=== PATIENT | female | born 1940 | race Caucasian/White ===

== ENCOUNTER 2018-01-08 00:28 | Day surgery (SDC) | payer MEDICARE ==
[~2018-01-08 00:28] MED LIST: ACET325 PO; ATEN25 PO; Aspirin EC81 MG; CALCA500CH PO; CALCAVITD PO; CEPH500 PO; COMBIVENT RESPIM4 GM INH; DOCU100 PO; ESCI10 PO; EVAC-U-GEN8.6 MG PO; Fergon240 M1; Fosinopril Sodi40 MG PO; GLUCOSAMINE CH1 EAC1 PO; HYDACE10B PO; IMODIUM MULTI-1 EAC1 PO; LAVAP17G PO; MAGNESIUM250 MG PO; MECL12.5 PO; METO25ER PO; Melatonin1 MG; NICO21TP; PRAV20 PO; Prilosec Otc20 MG; Pyridium200 MG PO; SCOPTP TOP; TOCO1000 PO; TRAM50 PO; ZEBUTAL 50-3251 EACH PO; Zofran4 MG PO
[2018-01-08] MEDS ORDERED: SOMA350 MG PO (11:08)
[2018-01-08] MEDS ORDERED: Voltaren100 GM TOP (11:10)
[2018-01-08] MEDS ORDERED: Norco 10-325 T1 EACH PO (11:12)
[2018-01-08] MEDS ORDERED: CHOL10002 PO (11:13)
[2018-01-08] MEDS ORDERED: Elemental Calc600 MG PO (11:15)
[2018-01-08] MEDS ORDERED: GLUCOSAMINE &1 EACH PO (11:16)
[2018-01-08] MEDS ORDERED: Ferrousul325 MG PO (11:19)
[2018-01-08] MEDS ORDERED: Flonase 0.05% N16 GM (11:20)
[2018-01-08] MEDS ORDERED: ALLEGRA ALLERG180 MG PO (11:21)
[2018-01-08] MEDS ORDERED: CETI5 PO (11:21)
== END 2018-01-08 10:39 | disposition home or self-care (01) ==
LOC: ATC 00:28
DX: R32 Unspecified urinary incontinence (principal); J02.9 Acute pharyngitis, unspecified; J32.0 Chronic maxillary sinusitis; E78.5 Hyperlipidemia, unspecified
CPT/HCPCS: 51798

== ENCOUNTER 2018-10-25 06:55 | Day surgery (SDC) | payer MEDICARE ==
[~2018-10-25] VITALS: Ht 167.6 cm; Wt 73.2 kg
[~2018-10-25 06:55] MED LIST changes: +ALLEGRA ALLERG180 MG PO; +CETI5 PO; +CHOL10002 PO; +DIFLUCAN PO; +Detrol1 MG PO; +Elemental Calc600 MG PO; +FLUC150A PO; +FOSI10 PO; +Ferrousul325 MG PO; +Flonase 0.05% N16 GM; +GLUCOSAMINE &1 EACH PO; +Norco 10-325 T1 EACH PO; +SOMA350 MG PO; +TUMS500 MG PO; +VOLTAREN TOP; +Voltaren100 GM TOP
--- NOTE | 2018-10-25 14:08 | NUR ---
PT RFA SITE STABLE, CLEAR TEGADERM INTACT, SITE SOFT NON TENDER, NO BLEEDING, OOZING, OR PAIN NOTED. PT EDUCATED ON DISPO INSTRUCTIONS, VERBALIZED UNDERSTANDING OF D/C INSTRUCTIONS. IV REMOVED FROM LEFT WRIST WITH CATH INTACT, PRESSURE DRESSING APPLIED. PT ABLE TO GET DRESSED WITH NO NEEDED ASSISTANCE. HERE TO DRIVE HER HOME. PT TAKEN OUT TO VEHICLE VIA W/C WITH NADN AT TIME OF DISPO. VSS. PT PLAN IS FOR TAVR.
== END 2018-10-25 14:17 | disposition home or self-care (01) ==
LOC: MHTC 06:55
DX: I25.10 Atherosclerotic heart disease of native coronary artery without angina pectoris (principal); I35.0 Nonrheumatic aortic (valve) stenosis; I42.0 Dilated cardiomyopathy; I63.9 Cerebral infarction, unspecified; I10 Essential (primary) hypertension; Z79.899 Other long term (current) drug therapy; Z79.82 Long term (current) use of aspirin; Z88.8 Allergy status to other drugs, medicaments and biological substances
CPT/HCPCS: 93454; 99152; 99153; C1760; C1769; J1644; J2060; J2250; J3010; J7030; Q9967

== ENCOUNTER 2018-10-30 13:25 | Inpatient (IN) | payer MEDICARE ==
[~2018-10-30] VITALS: Ht 167.6 cm; Wt 76.3 kg
[~2018-10-30 13:25] MED LIST changes: -Aspirin EC81 MG; +Aspirin EC81 MG PO
--- NOTE | 2018-10-30 15:51 | NUR ---
CARE ASSUMED PT DIRECT ADMIT FROM MODELER OFFICE. A/O X3, CALM AND COOPERATIVE. ARRIVES WITH CYANOTIC R DISTAL FOOT AND ABSENT PULSES. R FOOT IS COLD TO TOUCH WHILE L FOOT IS WARM AND PINK. PT STATES SHE HAD ANGIOGRAM DONE 5 DAYS AGO; R GROIN SITE IS WELL HEALED WITH NO HEMATOMA. VSS. PACED RHYTHM, HR 80S AND BP STABLE. MIV NS STARTED AT 100 ML/HR PER ORDER AND HEPARIN GTT STARTED AT 500 UNITS/HR PER ORDERS. PT UP TO BEDSIDE COMMODE WITH MINIMAL ASSIST. AWARE OF BEING NPO. CALL LIGHT WITHIN REACH. WILL CONTINUE TO MONITOR.
--- NOTE | 2018-10-30 18:13 | NUR ---
SHIFT SUMMARY PT ADMITTED TO ICU AT 1340 TODAY FROM [facility]. HAS BEEN NPO SINCE THEN AND IS AWAITING ANGIOPLASTY. RIGHT DISTAL FOOT IS CYANOTIC AND COLD. PEDAL PULSES ABSENT. HEPARIN GTT STARTED AT 500 UNITS/HR AND MIV NS AT 100 ML/HR PER ORDERS. FAMILY AT BEDSIDE. RAPHAEL CATHETER INSERTED FOR PROCEDURE. PT HAD SMALL BOWEL MOVEMENT. AWAITING HEAD UP OPERATOR. WILL GIVE BESIDE, HANDOFF REPORT TO RACHEAL GRAY.
--- NOTE | 2018-10-30 19:15 | NUR ---
ASSUMED CARE ASSUMED CARE OF PATIENT. AWAKE AND ALERT. ORIENTED AND COOPERATIVE. 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 CALMS WITH REASSURANCE. REPOSITIONS SELF IN BED AND IS UP TO BSC WITH STAND-BY ASSIST. DENIES C/O PAIN OR DISCOMFORT AT THIS TIME. DENIES NAUSEA. MONITOR SHOWS PACED RHYTHM, RATE 80-90s. SBP 170s. REMAINS ON RA- SATS 96-97%. RESPIRATIONS EVEN AND UNLABORED. RIGHT FOOT IS COOL TO TOUCH AND PALE FROM MID-FOOT TO TOES. WITH PURPLISH TOES. PT PULSE WITH DOPPLER. UNABLE TO FIND DP PULSE WITH DOPPLER. PT C/O TINGLING IN RIGHT TOES. HEPARIN INFUSING @ 500UNITS/HR PER ORDER. NS INFUSING @ 100CC/HR PER ORDER. SEE SHIFT ASSESSMENT FOR FULL ASSESSMENT.
--- NOTE | 2018-10-30 20:30 | NUR ---
HYPERTENSION DR. COFFMAN NOTIFIED OF SBP 170s. NO NEW ORDERS RECEIVED AT THIS TIME.
--- NOTE | 2018-10-30 21:00 | NUR ---
SALES DEPARTMENT MANAGER SALES DEPARTMENT MANAGER TEAM HERE TO TAKE PT TO SALES DEPARTMENT MANAGER. PT IS SLIGHTLY ANXIOUS ABOUT PROCEDURE, BUT CALMS WITH REASSURANCE.
--- NOTE | 2018-10-30 23:25 | NUR ---
BACK FROM [facility] PT RETURNED FROM [facility]. DROWSY, BUT ALERT. LEFT GROIN WITH SHEATH IN PLACE- MODERATE AMOUNT OF BLOOD NOTED TO BE OOZING FROM SITE. 1+ DP PULSE IN LEFT FOOT. RIGHT FOOT WITH DOPPLER PT PULSE. UNABLE TO FIND DP PULSE WITH DOPPLER. RIGHT FOOT IS COLD AND PALE FROM TOES TO MID-FOOT. FIRST AND SECOND TOE ARE PURPLISH. HEPARIN INFUSING @ 300UNITS/HR PER ORDER. VSS.
--- NOTE | 2018-10-30 23:41 | NUR ---
TPA INFUSION TPA INFUSING @ 0.25MCG/HR THROUGH SIDE PORT OF SHEATH AND 0.25MG/HR THROUGH COAXIAL INFUSION CATHETER PER ORDER (TOTAL TPA OF 0.5MG/HR).
[2018-10-31 06:19] LABS: Hematocrit 31.4 % (33.0-51.0); Hemoglobin 9.5 g/dL (11.5-16.0)
--- NOTE | 2018-10-31 06:43 | NUR ---
SHIFT SUMMARY PT TO APPLICATION DEVELOPMENT SPECIALIST FROM 2099 TO 5 FOR PERIPHERAL INTERVENTION. RETURNED TO ICU WITH LEFT FEMORAL SHEATH IN PLACE. SITE BLEEDING UPON ARRIVAL, BUT BLEEDING STOPPED AFTER APPROXIMATELY FIVE MINUTES OF LIGHT MANUAL PRESSURE. DRSG IS NOW INTACT WITH OLD BLOODY DRAINAGE NOTED. SITE IS SOFT AND WITHOUT HEMATOMA. TPA INFUSING VIA TWO SEPARATE PORTS @ 0.25MG/HR (TOTAL 0.5MG/HR) PER ORDER. HEPARIN GTT CONTINUES @ 300UNITS/HR PER ORDER. NS INFUSING @ 100CC/HR. RIGHT PT PULSE WITH DOPPLER. UNABLE TO FIND RIGHT DP PULSE WITH DOPPLER. LEFT PT/DP IS 1+. RIGHT FOOT IS PALE AND COOL FROM MID-FOOT TO TOES. FIRST AND SECOND TOE CONTINUES TO BE SLIGHTLY PURPLISH. PT DENIES NUMBNESS OR TINGLING AT THIS TIME. VSS. MONITOR SHOWS PACED RHYTHM. RAPHAEL PATENT AND DRAINING CLEAR YELLOW URINE. PT IS TO RETURN TO APPLICATION DEVELOPMENT SPECIALIST SOMETIME TODAY AND HAS BEEN NPO SINCE APPROXIMATELY 0100. MEDICATED WITH FENTANLY 25-50MCG IV X 2 DURING NOC WITH GOOD RELIEF OF RIGHT FOOT PAIN. PT IS SLIGHTLY ANXIOUS AT TIMES, BUT CALMS WITH REASSURANCE. WILL REPORT TO DAY SHIFT RN WHEN AVAILABLE.
--- NOTE | 2018-10-31 09:36 | NUR ---
PT HAS C/O LOW BACK PAIN (HX SURG) AND REPOSITIONING SEEMS TO ASSIST. PT HAS TPA X2 SITES INFUSINS NOTED, HEP AT 4UNITS/6ML, AND NS AT 100ML/HR. PT IS NPO AND MOUTN SWABS OFFERED. PT LOG ROLLED, L GROIN HAS OLD OZZING UNDER DSG OTHERWISE STABLE. PT HAS GOOD DOPPLER PULSES TO R FOOT, PINK TOES, WARM, AND DENIES PAIN IN FOOT.
--- NOTE | 2018-10-31 16:15 | NUR ---
PT JUST NOW [facility] R FOOT CATH PER DR COFFMAN. PT HAS BEEN HAVING LOW BACK PAIN AND REQUIRING PAIN MEDS FREQUENTLY. PT BP HAS TRENDED UP NOTED BUT NO AM MEDS WERE GIVEN. PT IVF UNCHANGED. PT FAMILY IN TO VISIT MOST OF DAY. PT SL ANXIOUS BUT WANTS PROCEDURE TO BE OVER.
--- NOTE | 2018-10-31 16:47 | NUR ---
This student nurse has permission to access patient's medical information.
--- NOTE | 2018-10-31 18:19 | NUR ---
1745 PT RECIEVED BACK FROM [facility] DROWSY BUT VSS. PT DISTAL PULSES PER STRONG DOPPLER SIGNAL AND BILAT FEET VERY WARM. L GROIN SITE STABLE AND DSG INTACT WITH SOME OBSERVABLE BRUSING EITHER SIDE OF GROIN FOLD. PT AROUSES BUT FALLS TO SLEEP. SATS GOOD. NEW ORDERS NOTED ON HAND WRITTEN PAPER ORDERS.
--- NOTE | 2018-10-31 21:30 | NUR ---
START OF SHIFT: BEDSIDE REPORT FROM PARESH GRAY. PT AWAKE AND TALKING TO FAMILY. VSS. LS CLEAR ON RA. L GROIN SITE ASSESED WITH PARESH GRAY AND IS SOFT WITH A SCANT AMOUNT OF DRAINAGE TO GAUZE UNDER TEGADERM WHICH HAS BEEN SAME PER PARESH GRAY. PT'S LOWER EXTREM PULSES + BILATERALY WITH DOPPLER. RIGHT FOOT ACTUALLY WARM AND PINK WITH <2 SEC CAP REFILL. PT WITH C/O BACK PAIN WHICH PT STATES IS HER NORMAL PAIN AND TAKES PAIN MEDICATION FOR AT HOME. PT STATED HAS NOT HAD HER MEDICATIONS TODAY AND HASN'T EATEN ANYTHING SINCE MONDAY MORNING. PT OTHERWISE PLEASANT AND CONTINUED TO SOCIALIZE WITH FAMILY.
--- NOTE | 2018-10-31 23:23 | NUR ---
PT OUT OF BED: PT UP OUT OF BED AND USED BEDSIDE COMMODE AT APPRX 2240. PT TOLERATED WELL. IODINE AND DRIED BLOOD WASHED FROM LEGS. SUDHAKAR CARE PROVIDED. PT ABLE TO HAVE SMALL BM. PT ASSISTED BACK TO BED. LEFT GROIN SITE REMAINS WNL, PEDAL PULSES + X4 USING DOPPLER. WILL CONTINUE TO MONITOR AND ASSIST PRN.
--- NOTE | 2018-11-01 00:52 | NUR ---
OOOO PT ASSIST TURNING TO THE LEFT. PT A+O, VSS, L FEM SITE REMAINS WNL. BILATERAL PP+ X4 WITH DOPPLER-PWD. CALL LIGHT WITHIN REACH.
--- NOTE | 2018-11-01 04:00 | NUR ---
PT C/O RIGHT LEG SPASM AND ACHE AFTER BACK TO BED FROM [facility]. PPP, RIGHT FOOT PWD. PULSES DETECTED VIA DOPPLER. WARM PACK APPLIED TO PT'S RIGHT THIGH AND PT LYING SUPINE. PT REQUESTED AND GIVEN "PAIN PILL". CALL LIGHT WITHIN REACH. WILL CONTINUE TO MONITOR.
--- NOTE | 2018-11-01 05:56 | NUR ---
IJEOMA BACK. PT UP TO BSC. PT ASSISTED BACK TO BED. CALL LIGHT IN HAND. PT WATCHING TV.
--- NOTE | 2018-11-01 07:00 | NUR ---
ASSUMED CARE OF PT. PT IS ALERT AND ORIENTED. DENIES PAIN AT THIS TIME. LEFT GROIN ACCESS SITE IS STABLE.
--- NOTE | 2018-11-01 09:04 | NUR ---
AMBULATED THROUGH UNIT PT AMBULATED THROUGHOUT ICU WITH HER CANE. DID VERY WELL, JUST STATES HER RIGHT LEG IS A "LITTLE SORE" BACK TO ROOM AND SAT UP IN CHAIR. FAMILY ARRIVES TO VISIT.
--- NOTE | 2018-11-01 09:34 | NUR ---
0820-HELPED PT TO THE BATHROOM. PT WAS ABLE TO AMBULATE FROM THE BED TO THE BATHROOM WITH SLIGHT LIMPING. PT STATED THAT THE R GROIN WAS SORE. TALKED TO DR. COFFMAN AND DR. CARRASCO REGARDING DIET. ORDERS RECEIVED. 0900-PT AMBULATED AROUND THE UNIT WITH SORENESS NOTED TO THE R GROIN FROM PREVIOUS ACCESS SITE BUT OVERALL PT IS DOING VERY WELL WITH AMBULATION. 0934-PT IS CURRENTLY SITTING ON THE CHAIR TALKING TO FAMILY. DR. COFFMAN HAS STATED TO THIS NURSE THAT PT CAN GO HOME TODAY. WILL INFORM DR. CARRASCO.
--- NOTE | 2018-11-01 13:07 | NUR ---
Met pt in bed resting and family members on visit in the room ,pt reports fo doing much better , encouraged pt offered spiritual support and prayers for the pt.
--- NOTE | 2018-11-01 14:15 | NUR ---
SEEDN BY DR. CARRASCO. PT WILL BE DISCHARGE TODAY.
[2018-11-01] MEDS ORDERED: CLOP75 PO (15:18)
--- NOTE | 2018-11-01 16:15 | NUR ---
PT WAS DISCHARGED @ 1612. DISCHARGE INSTRUCTIONS WERE GIVEN TO PATIENT. TRIED TO CALL DR. CARRASCO'S CLINIC TO MAKE APPOINTMENT FOR PATIENT, NO ONE ANSWERED.
== END 2018-11-01 16:10 | disposition home or self-care (01) | DRG 254 ==
LOC: ICUW 13:28
PROVIDERS: Radiology Diagnostic Radiology; ADMIT Internal Medicine Cardiovascular Disease
PROC: 047K3ZZ Dilation of Right Femoral Artery, Percutaneous Approach (ICD-10-PCS; principal; 2018-10-31)
PROC: 047M3ZZ Dilation of Right Popliteal Artery, Percutaneous Approach (ICD-10-PCS; 2018-10-31)
PROC: 3E05317 Introduction of Other Thrombolytic into Peripheral Artery, Percutaneous Approach (ICD-10-PCS; 2018-10-31)
DX: I70.201 Unspecified atherosclerosis of native arteries of extremities, right leg (principal); I70.8 Atherosclerosis of other arteries; I35.0 Nonrheumatic aortic (valve) stenosis; E78.5 Hyperlipidemia, unspecified; I49.5 Sick sinus syndrome; Z95.0 Presence of cardiac pacemaker; I07.1 Rheumatic tricuspid insufficiency; I10 Essential (primary) hypertension; I25.10 Atherosclerotic heart disease of native coronary artery without angina pectoris; Z86.73 Personal history of transient ischemic attack (TIA), and cerebral infarction without residual deficits
CPT/HCPCS: 36415; 37211; 37224; 51702; 75625; 75716; 75774; 85014; 85018; 85384; 93926; 99152; 99153; C1725; C1751; C1760; C1769; C1876; C1887; C1894; J1644; J2250; J2997; J3010; J7030; J7040; Q9967

== ENCOUNTER 2019-02-10 22:05 | Inpatient (IN) | payer MEDICARE ==
[~2019-02-10] VITALS: Ht 167.6 cm; Wt 67.0 kg
[~2019-02-10 22:05] MED LIST changes: +CLOP75 PO
[2019-02-10 23:47] LABS: BASOPHILS ABSOLUTE AUTO 0.06 K/mm3 (0.00-0.23); BASOPHILS PERCENT AUTO 1 % (0-2); EOSINOPHILS ABSOLUTE AUTO 0.18 K/mm3 (0.00-0.68); EOSINOPHILS PERCENT AUTO 2 % (0-6); Hematocrit 32.2 % (33.0-51.0); Hemoglobin 9.4 g/dL (11.5-16.0); IMMATURE GRAN ABSOLUTE AUTO 0.01 K/mm3 (0.00-0.10); IMMATURE GRAN PERCENT AUTO 0 % (0-1); LYMPHOCYTES ABSOLUTE AUTO 0.79 K/mm3 (0.84-5.20); LYMPHOCYTES PERCENT AUTO 9 % (21-46); MONOCYTES PERCENT AUTO 11 % (4-13); Mean Corpuscular HGB 25.4 pg (26.0-34.0); Mean Corpuscular HGB Conc 29.2 g/dL (31.5-36.5); Mean Corpuscular Volume 87 fL (80-100); Mean Platelet Volume 12.8 fL (9.1-12.4); NEUTROPHILS ABSOLUTE AUTO 6.58 K/mm3 (1.96-9.15); NEUTROPHILS PERCENT AUTO 77 % (41-73); Platelet Count 263 K/mm3 (150-400); RDW Coefficient Variation 15.8 % (11.7-14.2); White Blood Cell Count 8.52 K/mm3 (4.00-11.30)
[2019-02-10] MEDS ORDERED: PANT40 PO (23:56)
[2019-02-11 00:12] LABS: Alanine Aminotransfer (ALT/SGP 29 U/L (12-78); Albumin, Blood 3.3 g/dL (3.4-5.0); Albumin/Globulin Ratio 0.9 (0.8-1.8); Alk Phos 127 U/L (50-136); Anion Gap 6 mmol/L (6-16); Aspartate Aminotrans (AST/SGOT 30 U/L (12-37); Bilirubin, Total 0.3 mg/dL (0.1-1.0); Blood Urea Nitrogen 12 mg/dL (8-24); Bun/Creatinine Ratio 17.7 (12.0-20.0); CO2, Blood 28 mmol/L (21-32); Calcium, Blood 8.9 mg/dL (8.5-10.1); Chloride, Blood 107 mmol/L (98-108); Creatinine, Blood 0.68 mg/dL (0.40-1.00); Globulin, Blood 3.8 g/dL (2.2-4.0); Glomerular Filtration Rate >60 (60-); Glucose, Blood 121 mg/dL (70-99); Potassium, Blood 3.6 mmol/L (3.5-5.5); Sodium, Blood 141 mmol/L (136-145); Total Protein, Blood 7.1 g/dL (6.4-8.2); Troponin I <0.015 ng/mL (0.000-0.040)
--- NOTE | 2019-02-11 03:38 | NUR ---
SHIFT SUMMARY- PT. ARRIVED FROM ED VIA STRETCHER. DX'S OF ACUTE CHF. A&O, RAPHAEL PLACED IN THE ED FOR ACCURATE I&O'S. PT. C/O GENERALIZED WEAKNESS, IS A 1 ASSIST. BILATERAL LE EDEMA NOTED. TIRE WRAPPER IN PLACE. PT. RESTING COMFORTABLY IN BED, DENIES NEEDS AT THIS TIME. NO C/O PAIN OR DISCOMFORT. CALL LIGHT WITHIN REACH AND SIDE RAILS UP X2. WILL CONT TO MONITOR.
[2019-02-11 07:06] LABS: Adenovirus Not Detected (NOT DETECT); Bordetella pertussis Not Detected (NOT DETECT); Chlamydophila pneumoniae Not Detected (NOT DETECT); Coronavirus 229E Not Detected (NOT DETECT); Coronavirus HKU1 Not Detected (NOT DETECT); Coronavirus NL63 Not Detected (NOT DETECT); Coronavirus OC43 Not Detected (NOT DETECT); Human Metapneumovirus Not Detected (NOT DETECT); Human Rhinovirus/Enterovirus Not Detected (NOT DETECT); Influenza A Not Detected (NOT DETECT); Influenza A/2009-H1 Not Detected (NOT DETECT); Influenza A/H1 Not Detected (NOT DETECT); Influenza A/H3 Not Detected (NOT DETECT); Influenza B Not Detected (NOT DETECT); Mycoplasma pneumoniae Not Detected (NOT DETECT); Parainfluenza Virus 1 Not Detected (NOT DETECT); Parainfluenza Virus 2 Not Detected (NOT DETECT); Parainfluenza Virus 3 Not Detected (NOT DETECT); Parainfluenza Virus 4 Not Detected (NOT DETECT); Respiratory Syncytial Virus Not Detected (NOT DETECT)
[2019-02-11 07:26] LABS: Hematocrit 31.5 % (33.0-51.0); Hemoglobin 9.5 g/dL (11.5-16.0); Mean Corpuscular HGB 25.5 pg (26.0-34.0); Mean Corpuscular HGB Conc 30.2 g/dL (31.5-36.5); Mean Corpuscular Volume 85 fL (80-100); Mean Platelet Volume 11.1 fL (9.1-12.4); Platelet Count 331 K/mm3 (150-400); RDW Coefficient Variation 15.7 % (11.7-14.2); RDW Standard Deviation 47.8 fL (35.1-46.3); Red Blood Cell Count 3.72 M/mm3 (3.80-5.20); White Blood Cell Count 8.64 K/mm3 (4.00-11.30)
[2019-02-11 07:50] LABS: Troponin I <0.015 ng/mL (0.000-0.040)
[2019-02-11 07:59] LABS: Alanine Aminotransfer (ALT/SGP 27 U/L (12-78); Albumin, Blood 3.3 g/dL (3.4-5.0); Albumin/Globulin Ratio 0.8 (0.8-1.8); Alk Phos 121 U/L (50-136); Anion Gap 6 mmol/L (6-16); Aspartate Aminotrans (AST/SGOT 25 U/L (12-37); Bilirubin, Total 0.4 mg/dL (0.1-1.0); Blood Urea Nitrogen 11 mg/dL (8-24); Bun/Creatinine Ratio 16.1 (12.0-20.0); CO2, Blood 32 mmol/L (21-32); Calcium, Blood 9.2 mg/dL (8.5-10.1); Chloride, Blood 105 mmol/L (98-108); Creatinine, Blood 0.68 mg/dL (0.40-1.00); Globulin, Blood 3.9 g/dL (2.2-4.0); Glomerular Filtration Rate >60 (60-); Glucose, Blood 96 mg/dL (70-99); Potassium, Blood 4.1 mmol/L (3.5-5.5); Sodium, Blood 143 mmol/L (136-145); Total Protein, Blood 7.2 g/dL (6.4-8.2)
[2019-02-11 08:01] LABS: CPK Creatine Kinase 49 U/L (26-193)
--- NOTE | 2019-02-11 14:17 | NUR ---
NOTIFIED DR. GROSSMAN PT'S BP 84/57 AND [address] GROSSMAN PT REPORTS MILD DIZZINESS. NOTIFIED DR. GROSSMAN I HELD PT'S 1400 METOPROLOL. NO NEW ORDERS AT THIS TIME. WILL CONTINUE TO MONITOR.
[2019-02-11 16:47] LABS: CPK Creatine Kinase 44 U/L (26-193); Troponin I <0.015 ng/mL (0.000-0.040)
--- NOTE | 2019-02-11 17:27 | NUR ---
SHIFT SUMMARY- PT C/O BACK PAIN. MEDS GIVEN PER EMAR. PT DENIES SOB. 95% ON 2L O2 NC. PT C/O NAUSEA THIS AFTERNOON. MEDS GIVEN PER EMAR. PT HAD ECHO TODAY. DUAL PACED AT 90 PER PCU CENTRAL OFFICE OPERATOR SUPERVISOR. TELE DC'D. BP 84/[address] GROSSMAN NOTIFIED. SEE PREVIOUS NOTE. BP 117/56 THIS PM. RAPHAEL PATENT AND DRAINING. 1 ASSIST TO THE BATHROOM. NO OTHER SIGNIFICANT CHANGES THIS SHIFT.
--- NOTE | 2019-02-12 04:47 | NUR ---
SHIFT SUMMARY- PT. PLEASANT COOPERATIVE WITH CARE. SLEPT ON/OFF T/O THE NIGHT. PT. IS BEING DIURESED, ON 2L OF . CONTINUES TO HAVE PRODUCTIVE HACKING COUGH WITH THICK SECRETIONS. RAPHAEL PATENT AND DRAINING WELL. NO APPARENT DISTRESS NOTED. CALL LIGHT WITHIN REACH AND SIDE RAILS UP X2. WILL CONT TO MONITOR.
[2019-02-12 10:07] LABS: Percent Saturation 6.3 % (15.0-50.0)
--- NOTE | 2019-02-12 18:57 | NUR ---
SHIFT SUMMARY: PT'S RAPHAEL WAS REMOVED TODAY. POSSIBLE DC TOMORROW. PT INDEPENDENT TO BSC AND TRYING TO AMBULATE MORE OFTEN. DENIED FURTHER NEEDS OR CONCERNS. MEDICATED X1 FOR PAIN THIS SHIFT
[2019-02-13 05:01] LABS: BASOPHILS ABSOLUTE AUTO 0.05 K/mm3 (0.00-0.23); BASOPHILS PERCENT AUTO 1 % (0-2); EOSINOPHILS ABSOLUTE AUTO 0.32 K/mm3 (0.00-0.68); EOSINOPHILS PERCENT AUTO 3 % (0-6); Hematocrit 37.7 % (33.0-51.0); Hemoglobin 11.2 g/dL (11.5-16.0); IMMATURE GRAN ABSOLUTE AUTO 0.02 K/mm3 (0.00-0.10); IMMATURE GRAN PERCENT AUTO 0 % (0-1); LYMPHOCYTES ABSOLUTE AUTO 1.33 K/mm3 (0.84-5.20); LYMPHOCYTES PERCENT AUTO 14 % (21-46); MONOCYTES ABSOLUTE AUTO 1.13 K/mm3 (0.16-1.47); MONOCYTES PERCENT AUTO 12 % (4-13); Mean Corpuscular HGB 25.4 pg (26.0-34.0); Mean Corpuscular HGB Conc 29.7 g/dL (31.5-36.5); Mean Corpuscular Volume 86 fL (80-100); NEUTROPHILS ABSOLUTE AUTO 6.79 K/mm3 (1.96-9.15); NEUTROPHILS PERCENT AUTO 71 % (41-73); RDW Coefficient Variation 15.8 % (11.7-14.2); Red Blood Cell Count 4.41 M/mm3 (3.80-5.20); White Blood Cell Count 9.64 K/mm3 (4.00-11.30)
--- NOTE | 2019-02-13 05:04 | NUR ---
SHIFT SUMMARY- PT. SLEPT ON/OFF T/O SHIFT. AMBULATING TO BATHROOM WITH 1 ASSIST AND AT TIMES INDEPENDENTLY. DENIED ANY NEEDS T/O THE NIGHT. POSSIBLE D/C FOR TODAY. CALL LIGHT WITHIN REACH AND SIDE RAILS UP X 2. WILL CONT TO MONITOR.
[2019-02-13 05:18] LABS: Alanine Aminotransfer (ALT/SGP 22 U/L (12-78); Albumin, Blood 3.5 g/dL (3.4-5.0); Albumin/Globulin Ratio 0.8 (0.8-1.8); Alk Phos 121 U/L (50-136); Anion Gap 5 mmol/L (6-16); Aspartate Aminotrans (AST/SGOT 14 U/L (12-37); Bilirubin, Total 0.4 mg/dL (0.1-1.0); Blood Urea Nitrogen 17 mg/dL (8-24); Bun/Creatinine Ratio 19.3 (12.0-20.0); CO2, Blood 35 mmol/L (21-32); Calcium, Blood 9.6 mg/dL (8.5-10.1); Chloride, Blood 95 mmol/L (98-108); Creatinine, Blood 0.88 mg/dL (0.40-1.00); Globulin, Blood 4.5 g/dL (2.2-4.0); Glomerular Filtration Rate >60 (60-); Glucose, Blood 110 mg/dL (70-99); Potassium, Blood 3.6 mmol/L (3.5-5.5); Sodium, Blood 135 mmol/L (136-145)
[2019-02-13 05:19] LABS: Platelet Count 283 K/mm3 (150-400)
--- NOTE | 2019-02-13 07:40 | NUR ---
ASSUMED ASSUMED CARE OF PT APPORX. 0700. PT A&OX4. ASSESSMENT COMPLETED. PT VITAL SIGNS STABLE. ALTHOUGH PT BLOOD PRESSURE SLIGHTLY LOW MAP REMAINS IN 70'S. HELD MORNING BLOOD PRESSURE MEDICATIONS THIS AM. PT REPORTS HAVING A HEADACHE THIS MORNING FROM COUGHING SO MUCH LAST NIGHT. PRN PAIN MEDICAITON GIVEN PER EMAR. PT REPROTS THIS HELPED WITH THIS. PT REPROTS FEELING WELL THIS MORNING. PT CURRENLTY IN BED. BED IN LOW POSITION. CALL LIGHT IN REACH AND PT DENIES ANY NEEDS.
--- NOTE | 2019-02-13 18:22 | NUR ---
SHIFT SUMMARY PT PLEASANT, COOPERATIVE AND USES CALL LIGHT APPROPRIATELY. PT REMAINS A&OX4. VITAL SIGNS REMAIN STABLE. ASSESSMENT FINDINGS REMAIN UNCHANGED SINCE START OF SHIFT. PT ABLE TO AMBUALTE TO BEDSIDE COMMODE NEEDED. PT WAS ABLE TO AMBULATE AND TAKE A SHOWER TODAY. PT REPORTS COUGH WAS BETTER TODAY THAN FROM PREVIOUS DAYS. BED IN LOW POSITION, CALL LIGHT IN REACH AND PT DENIES ANY NEEDS AT THIS TIME. WILL CONTINUE TO MONITOR UNTIL HANDOFF TO NIGHTSHIFT RN.
[2019-02-14 05:51] LABS: Anion Gap 7 mmol/L (6-16); Blood Urea Nitrogen 18 mg/dL (8-24); Bun/Creatinine Ratio 21.4 (12.0-20.0); CO2, Blood 34 mmol/L (21-32); Calcium, Blood 9.4 mg/dL (8.5-10.1); Chloride, Blood 95 mmol/L (98-108); Creatinine, Blood 0.84 mg/dL (0.40-1.00); Glomerular Filtration Rate >60 (60-); Glucose, Blood 104 mg/dL (70-99); Potassium, Blood 3.5 mmol/L (3.5-5.5); Sodium, Blood 136 mmol/L (136-145)
--- NOTE | 2019-02-14 06:33 | NUR ---
SHIFT SUMMARY PT IS A 78 Y/O FEMALE, ADMITTED FOR ACUTE CHF EXACERBATION AND FLUID OVERLOAD. SHE IS A&O X 3, AND [place]END[place] [facility] SHE REPORTED CHRONIC BACK AND CHEST PAIN AT THE SITE OF HER RECENT SURGERY DURING THE NIGHT, AND WAS MEDICATED TWICE WITH PRN NORCO. NO COMPLAINTS OF NAUSEA OR SOB. VITALS REMAINED STABLE ON 2L OF O2 VIA NC. NO OTHER ACUTE CHANGES IN PT CONDITION NOTED. WILL CONTINUE TO MONITOR AND TREAT PER EMAR UNTIL HAND OFF TO DAY SHIFT.
--- NOTE | 2019-02-14 17:56 | NUR ---
SHIFT SUMMARY PT AXO X4 THOUGH VERY FORGETFUL AND IRRITABLE. VSS. PT WORKED WITH PHYSICAL THERAPY, SEE NOTE. PT HAD 700ML OUT SO FAR THIS SHIFT. IV PATENT AND SALINE LOCKED. BED IN LOW POSITION, CALL LIGHT WITHIN REACH
--- NOTE | 2019-02-15 06:14 | NUR ---
SHIFT SUMMARY PT IS A 78 Y/O FEMALE, ADMITTED FOR ACUTE CHF EXACERBATION. SHE IS A&O X 3, AND [place] [facility] SHE WAS MEDICATED ONCE WITH PRN NORCO FOR CHRONIC BACK PAIN. SHE ALSO HAD A INTERMITTENT NONPRODUCTIVE COUGH, WITH NO COMPLAINTS OF ACUTE SOB OR NAUSEA. VITALS STABLE. NO OTHER ACUTE CHANGES IN PT CONDITION NOTED. WILL CONTINUE TO MONITOR AND TREAT PER EMAR UNTIL HAND OFF TO DAY SHIFT.
[2019-02-15 07:02] LABS: BASOPHILS ABSOLUTE AUTO 0.09 K/mm3 (0.00-0.23); BASOPHILS PERCENT AUTO 1 % (0-2); EOSINOPHILS ABSOLUTE AUTO 0.19 K/mm3 (0.00-0.68); EOSINOPHILS PERCENT AUTO 2 % (0-6); Hematocrit 38.1 % (33.0-51.0); Hemoglobin 11.1 g/dL (11.5-16.0); IMMATURE GRAN ABSOLUTE AUTO 0.02 K/mm3 (0.00-0.10); IMMATURE GRAN PERCENT AUTO 0 % (0-1); LYMPHOCYTES ABSOLUTE AUTO 1.22 K/mm3 (0.84-5.20); LYMPHOCYTES PERCENT AUTO 15 % (21-46); MONOCYTES ABSOLUTE AUTO 0.83 K/mm3 (0.16-1.47); MONOCYTES PERCENT AUTO 10 % (4-13); Mean Corpuscular HGB 24.9 pg (26.0-34.0); Mean Corpuscular HGB Conc 29.1 g/dL (31.5-36.5); Mean Corpuscular Volume 85 fL (80-100); Mean Platelet Volume 11.1 fL (9.1-12.4); NEUTROPHILS PERCENT AUTO 71 % (41-73); Platelet Count 384 K/mm3 (150-400); RDW Coefficient Variation 15.5 % (11.7-14.2); RDW Standard Deviation 48.9 fL (35.1-46.3); Red Blood Cell Count 4.46 M/mm3 (3.80-5.20); White Blood Cell Count 8.05 K/mm3 (4.00-11.30)
[2019-02-15 07:25] LABS: Alanine Aminotransfer (ALT/SGP 17 U/L (12-78); Albumin, Blood 3.5 g/dL (3.4-5.0); Albumin/Globulin Ratio 0.8 (0.8-1.8); Alk Phos 111 U/L (50-136); Anion Gap 5 mmol/L (6-16); Aspartate Aminotrans (AST/SGOT 9 U/L (12-37); Bilirubin, Total 0.2 mg/dL (0.1-1.0); Blood Urea Nitrogen 22 mg/dL (8-24); Bun/Creatinine Ratio 24.6 (12.0-20.0); CO2, Blood 34 mmol/L (21-32); Calcium, Blood 9.5 mg/dL (8.5-10.1); Chloride, Blood 95 mmol/L (98-108); Creatinine, Blood 0.89 mg/dL (0.40-1.00); Globulin, Blood 4.6 g/dL (2.2-4.0); Glomerular Filtration Rate >60 (60-); Glucose, Blood 140 mg/dL (70-99); Potassium, Blood 3.5 mmol/L (3.5-5.5); Sodium, Blood 134 mmol/L (136-145); Total Protein, Blood 8.1 g/dL (6.4-8.2)
--- NOTE | 2019-02-15 18:45 | NUR ---
shift summary patient is pleasant, no acute concerns at this time. patient was just given a no iv access order per dr. chang on telephone order. no acute concerns at this patient.
--- NOTE | 2019-02-16 04:49 | NUR ---
NOC SHIFT SUMMARY PT PLEASANT AND COOPERATIVE WITH CARE. STATES SHE HAS A PRODUCTIVE COUGH THOUGH I HAVE NO HEARD HER COUGH. ADMITTED FOR CHF EXACERBATION AND BEING DIURESED. SHE HAS BEEN TREATED FOR CHRONIC BACK PAIN THIS NIGHT TO GOOD EFFECT. VSS. AAOX4. RESP EVEN AND UNLABORED. APPEARS IN NO ACUTE DISTRESS. WILL CONTINUE TO MONITOR.
[2019-02-16 05:51] LABS: Anion Gap 5 mmol/L (6-16); Blood Urea Nitrogen 20 mg/dL (8-24); Bun/Creatinine Ratio 26.5 (12.0-20.0); CO2, Blood 34 mmol/L (21-32); Calcium, Blood 9.3 mg/dL (8.5-10.1); Chloride, Blood 95 mmol/L (98-108); Creatinine, Blood 0.76 mg/dL (0.40-1.00); Glomerular Filtration Rate >60 (60-); Glucose, Blood 116 mg/dL (70-99); Potassium, Blood 3.7 mmol/L (3.5-5.5); Sodium, Blood 134 mmol/L (136-145)
[2019-02-16] MEDS ORDERED: BENZ100A PO (12:29)
[2019-02-16] MEDS ORDERED: Preparation H26 GM PR (12:30)
[2019-02-16] MEDS ORDERED: Colace100 MG PO (12:30)
[2019-02-16] MEDS ORDERED: NITR.6SL PO (12:31)
[2019-02-16] MEDS ORDERED: METO25ER PO (12:31)
[2019-02-16] MEDS ORDERED: TORSE20 PO (12:32)
[2019-02-16] MEDS ORDERED: POTA10T PO (12:32)
[2019-02-16] MEDS ORDERED: ALBU90OI INH (12:35)
[2019-02-16] MEDS ORDERED: AIRDUO RESPICL1 EAC2 INH (12:36)
[2019-02-16] MEDS ORDERED: LISI5 PO (12:37)
[2019-02-16] MEDS ORDERED: COMBIVENT RESPIM4 GM INH (12:37)
[2019-02-16] MEDS ORDERED: Prednisone10 MG PO (12:39)
[2019-02-16] MEDS ORDERED: Florastor250 MG PO (12:49)
[2019-02-16] MEDS ORDERED: DOXY100 PO (12:49)
--- NOTE | 2019-02-16 18:28 | NUR ---
DISCHARGE SUMMARY PATIENT HAD NO IV ACCESS. ALL MEDICATIONS SENT TO THE PHARMACY AND PICKED UP PRIOR TO PATIENT'S DISCHARGE. PATIENT DISCHARGED TO HOME WITH , HE PICKED HER UP. SHE WAS WHEELED DOWN TO THE CAR IN A WHEELCHAIR.
== END 2019-02-16 16:26 | disposition home or self-care (01) | DRG 291 ==
LOC: ER 22:05 → MEDS 22:06 → ENPENDDIS 02-16 11:43 → MEDS 02-16 16:26
PROVIDERS: Internal Medicine; Physician Assistant; ADMIT Internal Medicine
DX: I11.0 Hypertensive heart disease with heart failure (principal); I50.31 Acute diastolic (congestive) heart failure; E78.5 Hyperlipidemia, unspecified; I25.10 Atherosclerotic heart disease of native coronary artery without angina pectoris; I73.9 Peripheral vascular disease, unspecified; J20.9 Acute bronchitis, unspecified; J44.9 Chronic obstructive pulmonary disease, unspecified; B96.1 Klebsiella pneumoniae [K. pneumoniae] as the cause of diseases classified elsewhere; Z95.1 Presence of aortocoronary bypass graft; Z95.2 Presence of prosthetic heart valve; Z86.73 Personal history of transient ischemic attack (TIA), and cerebral infarction without residual deficits; Z79.82 Long term (current) use of aspirin; Z79.899 Other long term (current) drug therapy; Z88.1 Allergy status to other antibiotic agents; Z88.8 Allergy status to other drugs, medicaments and biological substances; Z87.891 Personal history of nicotine dependence
CPT/HCPCS: 0099U; 36415; 51702; 71046; 80048; 80053; 82550; 82728; 83540; 83550; 83735; 83880; 84145; 84484; 85025; 85027; 87070; 87077; 87186; 87205; 93005; 93010; 93306; 94640; 94760; 94761; 96372; 96374-59; 96375; 96375-59; 96376; 97162; 99285-25; A9270; G0378; J0696; J1650; J1940; J2405

== ENCOUNTER → 2020-04-21 | Outpatient (CLI) | payer MEDICARE ==
[~2020-04-21] MED LIST changes: +AIRDUO RESPICL1 EAC2 INH; +ALBU90OI INH; +BENZ100A PO; +Colace100 MG PO; +DOXY100 PO; +Florastor250 MG PO; +LISI5 PO; +NITR.6SL PO; +PANT40 PO; +POTA10T PO; +Prednisone10 MG PO; +Preparation H26 GM PR; +TORSE20 PO
[2020-04-24 14:09] LABS: M-SPIKE, % Not Observed % (Not Observed); PROTEIN,TOTAL,URINE <4.0 mg/dL (Not Estab.)
== END | disposition home or self-care (01) ==
LOC: LAB SHORT 11:22 → LAB 11:22
PROVIDERS: Internal Medicine
DX: R79.89 Other specified abnormal findings of blood chemistry (principal)
CPT/HCPCS: 81050; 84166; 86335

== ENCOUNTER → 2020-08-06 | Outpatient (CLI) | payer MEDICARE ==
[~2020-08-06] MED LIST changes: +ELIQUIS2.5 MG PO
[2020-08-06 15:11] LABS: Anion Gap 9 mmol/L (6-16); Blood Urea Nitrogen 15 mg/dL (8-24); Bun/Creatinine Ratio 16.1 (12.0-20.0); CO2, Blood 27 mmol/L (21-32); Calcium, Blood 9.3 mg/dL (8.5-10.1); Chloride, Blood 105 mmol/L (98-108); Creatinine, Blood 0.93 mg/dL (0.40-1.00); Glomerular Filtration Rate >60 (60-); Glucose, Blood 89 mg/dL (70-99); Magnesium, Blood 2.4 mg/dL (1.6-2.4); Potassium, Blood 3.7 mmol/L (3.5-5.5); Sodium, Blood 141 mmol/L (136-145)
[2020-08-06 15:22] LABS: BASOPHILS ABSOLUTE AUTO 0.06 K/mm3 (0.00-0.23); BASOPHILS PERCENT AUTO 1 % (0-2); EOSINOPHILS ABSOLUTE AUTO 0.16 K/mm3 (0.00-0.68); EOSINOPHILS PERCENT AUTO 2 % (0-6); Hematocrit 34.9 % (33.0-51.0); Hemoglobin 9.9 g/dL (11.5-16.0); IMMATURE GRAN ABSOLUTE AUTO 0.04 K/mm3 (0.00-0.10); IMMATURE GRAN PERCENT AUTO 1 % (0-1); LYMPHOCYTES PERCENT AUTO 11 % (21-46); MONOCYTES ABSOLUTE AUTO 0.65 K/mm3 (0.16-1.47); MONOCYTES PERCENT AUTO 9 % (4-13); Mean Corpuscular HGB Conc 28.4 g/dL (31.5-36.5); Mean Corpuscular Volume 92 fL (80-100); NEUTROPHILS ABSOLUTE AUTO 5.44 K/mm3 (1.96-9.15); NEUTROPHILS PERCENT AUTO 76 % (41-73); RDW Coefficient Variation 15.9 % (11.7-14.2); RDW Standard Deviation 52.7 fL (35.1-46.3); Red Blood Cell Count 3.81 M/mm3 (3.80-5.20); White Blood Cell Count 7.15 K/mm3 (4.00-11.30)
[2020-08-06 15:41] LABS: Platelet Count 293 K/mm3 (150-400)
== END | disposition home or self-care (01) ==
LOC: LAB HH 11:55
PROVIDERS: Internal Medicine
DX: D50.0 Iron deficiency anemia secondary to blood loss (chronic) (principal); I11.0 Hypertensive heart disease with heart failure; I50.33 Acute on chronic diastolic (congestive) heart failure; I24.8 Other forms of acute ischemic heart disease
CPT/HCPCS: 80048; 83735; 83880; 85025

== ENCOUNTER → 2020-08-11 | Outpatient (CLI) | payer MEDICARE ==
[2020-08-11 16:03] LABS: Magnesium, Blood 2.3 mg/dL (1.6-2.4)
[2020-08-11 16:07] LABS: Bun/Creatinine Ratio 19.3 (12.0-20.0); Calcium, Blood 9.4 mg/dL (8.5-10.1); Creatinine, Blood 1.19 mg/dL (0.40-1.00); Potassium, Blood 3.9 mmol/L (3.5-5.5)
== END | disposition home or self-care (01) ==
LOC: LAB HH 11:00
PROVIDERS: Internal Medicine
DX: I11.0 Hypertensive heart disease with heart failure (principal); I50.33 Acute on chronic diastolic (congestive) heart failure; Z79.899 Other long term (current) drug therapy
CPT/HCPCS: 80048; 83735; 83880

== ENCOUNTER → 2020-08-25 | Outpatient (CLI) | payer MEDICARE ==
[2020-08-25 12:40] LABS: BASOPHILS ABSOLUTE AUTO 0.06 K/mm3 (0.00-0.23); BASOPHILS PERCENT AUTO 1 % (0-2); EOSINOPHILS ABSOLUTE AUTO 0.13 K/mm3 (0.00-0.68); EOSINOPHILS PERCENT AUTO 2 % (0-6); Hematocrit 38.6 % (33.0-51.0); Hemoglobin 11.4 g/dL (11.5-16.0); IMMATURE GRAN ABSOLUTE AUTO 0.01 K/mm3 (0.00-0.10); IMMATURE GRAN PERCENT AUTO 0 % (0-1); LYMPHOCYTES ABSOLUTE AUTO 0.75 K/mm3 (0.84-5.20); LYMPHOCYTES PERCENT AUTO 11 % (21-46); MONOCYTES ABSOLUTE AUTO 0.66 K/mm3 (0.16-1.47); MONOCYTES PERCENT AUTO 10 % (4-13); Mean Corpuscular HGB Conc 29.5 g/dL (31.5-36.5); Mean Corpuscular Volume 91 fL (80-100); Mean Platelet Volume 13.7 fL (9.1-12.4); NEUTROPHILS ABSOLUTE AUTO 5.03 K/mm3 (1.96-9.15); NEUTROPHILS PERCENT AUTO 76 % (41-73); Platelet Count 166 K/mm3 (150-400); RDW Coefficient Variation 17.4 % (11.7-14.2); Red Blood Cell Count 4.23 M/mm3 (3.80-5.20); White Blood Cell Count 6.64 K/mm3 (4.00-11.30)
[2020-08-25 13:05] LABS: Bun/Creatinine Ratio 27.9 (12.0-20.0); Calcium, Blood 9.3 mg/dL (8.5-10.1); Creatinine, Blood 1.11 mg/dL (0.40-1.00); Magnesium, Blood 2.3 mg/dL (1.6-2.4); Potassium, Blood 4.2 mmol/L (3.5-5.5)
== END | disposition home or self-care (01) ==
LOC: LAB HH 11:00
PROVIDERS: Internal Medicine
DX: I11.0 Hypertensive heart disease with heart failure (principal); I50.33 Acute on chronic diastolic (congestive) heart failure; D62 Acute posthemorrhagic anemia; Z79.899 Other long term (current) drug therapy
CPT/HCPCS: 80048; 83735; 83880; 85025

== ENCOUNTER → 2020-09-14 | Outpatient (CLI) | payer MEDICARE ==
[2020-09-14 16:24] LABS: Bun/Creatinine Ratio 25.5 (12.0-20.0); Calcium, Blood 9.3 mg/dL (8.5-10.1); Creatinine, Blood 1.06 mg/dL (0.40-1.00); Potassium, Blood 4.5 mmol/L (3.5-5.5)
== END | disposition home or self-care (01) ==
LOC: LAB SHORT 14:20 → LAB 14:20 → LAB FUT 04-17 09:10
PROVIDERS: Internal Medicine
DX: I50.9 Heart failure, unspecified (principal); Z79.899 Other long term (current) drug therapy
CPT/HCPCS: 36415; 80048; 83880

== ENCOUNTER → 2021-01-01 | Outpatient (CLI) | payer MEDICARE ==
[2021-01-02 14:08] LABS: Stool Occult Blood Guaiac 1 Pos (Neg)
[2021-01-02 14:09] LABS: Stool Occult Blood Guaiac 2 Pos (Neg); Stool Occult Blood Guaiac 3 Pos (Neg)
== END | disposition home or self-care (01) ==
LOC: LAB 08:58 → LAB SHORT 08:58 → LAB FUT 12-28 07:30
PROVIDERS: Internal Medicine
DX: D64.9 Anemia, unspecified (principal)
CPT/HCPCS: 82272

== ENCOUNTER → 2022-06-09 | Outpatient (CLI) | payer MEDICARE ==
[2022-06-09 16:58] LABS: Appearance, Urine Hazy (Clear); Bilirubin, Urine Neg (Neg); Blood, Urine Neg (Neg); Color, Urine Yellow (P-Yellow); Glucose Qualitative, Urine Neg (Neg); Ketones, Urine Neg (Neg); Leukocyte Esterase, Urine 2+ (Neg); Nitrite, Urine Neg (Neg); Protein, Urine 1+ (Neg); Urobilinogen, Urine NORM (Normal)
[2022-06-09 17:13] LABS: Bacteria Few /hpf; Red Blood Cells, Urine 0-2 /hpf (0-2); Squamous Epithelial Cells Mod /hpf (Few)
[2022-06-09 17:14] LABS: Transitional Epithelial Cells Rare /hpf (0-Rare)
== END | disposition home or self-care (01) ==
LOC: LAB 14:30 → LAB SHORT 14:30 → LAB FUT 05-20 14:15
PROVIDERS: Internal Medicine
DX: N18.32 Chronic kidney disease, stage 3b (principal)
CPT/HCPCS: 81001; 87077; 87086; 87186

== ENCOUNTER 2024-07-12 16:37 | Inpatient (IN) | payer MEDICARE ==
[~2024-07-12] VITALS: Ht 167.6 cm; Wt 68.2 kg
[2024-07-12 17:23] LABS: BASOPHILS ABSOLUTE AUTO 0.05 K/mm3 (0.00-0.23); BASOPHILS PERCENT AUTO 1 % (0-2); EOSINOPHILS ABSOLUTE AUTO 0.05 K/mm3 (0.00-0.68); EOSINOPHILS PERCENT AUTO 1 % (0-6); Hematocrit 39.9 % (33.0-51.0); Hemoglobin 12.6 g/dL (11.5-16.0); IMMATURE GRAN ABSOLUTE AUTO 0.02 K/mm3 (0.00-0.10); IMMATURE GRAN PERCENT AUTO 0 % (0-1); LYMPHOCYTES ABSOLUTE AUTO 0.55 K/mm3 (0.84-5.20); LYMPHOCYTES PERCENT AUTO 7 % (21-46); MONOCYTES ABSOLUTE AUTO 0.68 K/mm3 (0.16-1.47); MONOCYTES PERCENT AUTO 8 % (4-13); Mean Corpuscular HGB Conc 31.6 g/dL (31.5-36.5); Mean Corpuscular Volume 101 fL (80-100); Mean Platelet Volume 10.5 fL (9.1-12.4); NEUTROPHILS ABSOLUTE AUTO 7.06 K/mm3 (1.96-9.15); NEUTROPHILS PERCENT AUTO 84 % (41-73); Platelet Count 325 K/mm3 (150-400); RDW Coefficient Variation 15.3 % (11.7-14.2); RDW Standard Deviation 56.7 fL (35.1-46.3); Red Blood Cell Count 3.94 M/mm3 (3.80-5.20); White Blood Cell Count 8.41 K/mm3 (4.00-11.30)
[2024-07-12 17:40] LABS: Prothrombin Time Results 10.7 Sec (9.7-11.5)
[2024-07-12 18:02] LABS: Albumin, Blood 3.7 g/dL (3.4-5.0); Albumin/Globulin Ratio 0.9 (0.8-1.8); Bilirubin, Total 0.4 mg/dL (0.1-1.0); Bun/Creatinine Ratio 26.5 (12.0-20.0); Calcium, Blood 9.6 mg/dL (8.5-10.1); Creatinine, Blood 1.02 mg/dL (0.40-1.00); Globulin, Blood 4.2 g/dL (2.2-4.0); Potassium, Blood 4.6 mmol/L (3.5-5.5); Total Protein, Blood 7.9 g/dL (6.4-8.2)
[2024-07-12] MEDS ORDERED: Ondansetron HCl 2 MG / ML 2ML Vial IV ONE (22:10)
[2024-07-12] MEDS ORDERED: HYDROmorphone HCl/Pf 1MG SYR IV ONE (22:10)
[2024-07-12] MEDS ORDERED: Heparin Sodium,Porcine/0.5 NS 500 ML IV SCH (23:00)
[2024-07-12] MEDS ORDERED: Heparin Sodium 5000 Units/ML 1ML MDV IV ONE (23:00)
[2024-07-12] MEDS ORDERED: NS 1,000 ML IV SCH (23:15)
[2024-07-12] MEDS ORDERED: FLU VACC TS2024-25(6MOS UP)/PF 45 MCG/0.5 ML SYRINGE IM ONE (23:15)
[2024-07-12] MEDS ORDERED: Ondansetron HCl 2 MG / ML 2ML Vial IV PRN (23:15)
[2024-07-12] MEDS ORDERED: FentaNYL Citrate 50 MCG/ML 2 ML Injection IV PRN (23:15)
[2024-07-13] MEDS ORDERED: NS 1,000 ML IV ONE (01:30)
[2024-07-13] MEDS ORDERED: HYDROmorphone HCl/Pf 1MG SYR IV ONE (02:25)
[2024-07-13 03:45] LABS: BASOPHILS ABSOLUTE AUTO 0.04 K/mm3 (0.00-0.23); BASOPHILS PERCENT AUTO 0 % (0-2); EOSINOPHILS ABSOLUTE AUTO 0.03 K/mm3 (0.00-0.68); EOSINOPHILS PERCENT AUTO 0 % (0-6); Hematocrit 37.6 % (33.0-51.0); IMMATURE GRAN ABSOLUTE AUTO 0.01 K/mm3 (0.00-0.10); IMMATURE GRAN PERCENT AUTO 0 % (0-1); LYMPHOCYTES ABSOLUTE AUTO 0.65 K/mm3 (0.84-5.20); LYMPHOCYTES PERCENT AUTO 7 % (21-46); MONOCYTES ABSOLUTE AUTO 0.71 K/mm3 (0.16-1.47); MONOCYTES PERCENT AUTO 8 % (4-13); Mean Corpuscular HGB 32.3 pg (26.0-34.0); Mean Corpuscular HGB Conc 31.9 g/dL (31.5-36.5); Mean Corpuscular Volume 101 fL (80-100); Mean Platelet Volume 12.3 fL (9.1-12.4); NEUTROPHILS ABSOLUTE AUTO 7.48 K/mm3 (1.96-9.15); NEUTROPHILS PERCENT AUTO 84 % (41-73); Platelet Count 265 K/mm3 (150-400); RDW Coefficient Variation 15.3 % (11.7-14.2); RDW Standard Deviation 56.9 fL (35.1-46.3); Red Blood Cell Count 3.71 M/mm3 (3.80-5.20); White Blood Cell Count 8.92 K/mm3 (4.00-11.30)
[2024-07-13 04:06] LABS: Albumin, Blood 3.3 g/dL (3.4-5.0); Albumin/Globulin Ratio 0.9 (0.8-1.8); Bilirubin, Total 0.4 mg/dL (0.1-1.0); Calcium, Blood 9.3 mg/dL (8.5-10.1); Creatinine, Blood 0.89 mg/dL (0.40-1.00); Globulin, Blood 3.7 g/dL (2.2-4.0); Potassium, Blood 4.7 mmol/L (3.5-5.5)
[2024-07-13] MEDS ORDERED: HYDROmorphone HCl/Pf 1MG SYR IV PRN (06:10)
[2024-07-13] MEDS ORDERED: Dose Adjust by Pharmacy XX STA ×3 (07:09→20:17)
[2024-07-13 13:59] VITALS: BP 146/50
[2024-07-13] MEDS ORDERED: FentaNYL Citrate 50 MCG/ML 2 ML Injection IV PRN (15:45)
[2024-07-13] MEDS ORDERED: QUET25 PO (17:25)
[2024-07-13] MEDS ORDERED: FEROSUL325 M1 PO (17:26)
[2024-07-13] MEDS ORDERED: ASCO500 PO (17:27)
[2024-07-13] MEDS ORDERED: ZYRTEC10 M2 PO (17:47)
[2024-07-13] MEDS ORDERED: CLOBETTC TOP (17:48)
[2024-07-13 18:12] VITALS: BP 99/57
[2024-07-13 18:15] VITALS: BP 142/51
[2024-07-13 20:53] VITALS: BP 150/56
[2024-07-13 23:40] VITALS: BP 151/53
[2024-07-14] MEDS ORDERED: Dose Adjust by Pharmacy XX STA ×3 (05:21→19:35)
[2024-07-14 05:29] VITALS: BP 158/56
[2024-07-14 08:26] VITALS: BP 169/52
[2024-07-14] MEDS ORDERED: Potassium Chloride 10 Meq Tablet SA PO SCH (08:43)
[2024-07-14] MEDS ORDERED: Albuterol HFA200 ACT/6.7 GM INH INH PRN (08:45)
[2024-07-14] MEDS ORDERED: Mometasone/Formoterol MDI 200/5 mcg 13 GM INH SCH (08:45)
[2024-07-14] MEDS ORDERED: Lisinopril 5 MG Tab PO SCH (09:00)
[2024-07-14] MEDS ORDERED: Aspirin 81 MG TabEC PO SCH (09:00)
[2024-07-14] MEDS ORDERED: ESCITALOPRAM 10MG TAB PO SCH (09:00)
[2024-07-14] MEDS ORDERED: Torsemide 20 MG TAB PO SCH (09:00)
[2024-07-14] MEDS ORDERED: Docusate Sodium 100 MG Cap PO SCH (09:00)
[2024-07-14] MEDS ORDERED: Metoprolol Succinate 25 MG TABCR PO SCH (09:00)
[2024-07-14 12:10] VITALS: BP 164/43
[2024-07-14 16:27] VITALS: BP 139/43
[2024-07-14 20:24] VITALS: BP 120/62
[2024-07-14] MEDS ORDERED: QUEtiapine Fumarate 25 MG Tab PO SCH (21:00)
[2024-07-14] MEDS ORDERED: Pravastatin Sodium 20 MG Tab PO SCH (21:00)
[2024-07-14] MEDS ORDERED: HYDROmorphone HCl/Pf 1MG SYR IV ONE (23:10)
[2024-07-15] VITALS (13 sets, daily range): BP systolic 114–152; BP diastolic 38–70
[2024-07-15] MEDS ORDERED: Dose Adjust by Pharmacy XX STA ×2 (04:33→22:30)
[2024-07-15 05:56] LABS: Hemoglobin 10.8 g/dL (11.5-16.0)
[2024-07-15] MEDS ORDERED: Pantoprazole Sodium 40 MG Tab PO SCH (06:00)
[2024-07-15 06:05] LABS: Hematocrit 34.2 % (33.0-51.0); Platelet Count 234 K/mm3 (150-400)
[2024-07-15] MEDS ORDERED: FentaNYL Citrate 50 MCG/ML 2 ML Injection ONE ×2 (16:43→18:00)
[2024-07-15] MEDS ORDERED: Midazolam HCl 1MG / ML 2ML Vial ONE ×2 (16:43→18:00)
[2024-07-15] MEDS ORDERED: Heparin Sodium 1000 Units/ML 10ML MDV ONE (16:43)
[2024-07-15] MEDS ORDERED: Nitroglycerin 2 MG/20 ML BTL ONE (16:44)
[2024-07-15] MEDS ORDERED: NS 500 ML IV ONE ×2 (16:44)
[2024-07-15] MEDS ORDERED: NS 1,000 ML IV ONE (16:44)
[2024-07-15] MEDS ORDERED: HydrALAZINE HCl 20 MG / ML 1ML Vial ONE (17:55)
[2024-07-16] VITALS (9 sets, daily range): BP systolic 139–158; BP diastolic 41–52
[2024-07-16 05:13] LABS: BASOPHILS ABSOLUTE AUTO 0.02 K/mm3 (0.00-0.23); BASOPHILS PERCENT AUTO 0 % (0-2); EOSINOPHILS ABSOLUTE AUTO 0.01 K/mm3 (0.00-0.68); EOSINOPHILS PERCENT AUTO 0 % (0-6); Hematocrit 35.4 % (33.0-51.0); Hemoglobin 11.6 g/dL (11.5-16.0); IMMATURE GRAN ABSOLUTE AUTO 0.02 K/mm3 (0.00-0.10); IMMATURE GRAN PERCENT AUTO 0 % (0-1); LYMPHOCYTES ABSOLUTE AUTO 0.69 K/mm3 (0.84-5.20); LYMPHOCYTES PERCENT AUTO 7 % (21-46); MONOCYTES ABSOLUTE AUTO 1.26 K/mm3 (0.16-1.47); MONOCYTES PERCENT AUTO 12 % (4-13); Mean Corpuscular HGB 32.5 pg (26.0-34.0); Mean Corpuscular HGB Conc 32.8 g/dL (31.5-36.5); Mean Corpuscular Volume 99 fL (80-100); Mean Platelet Volume 11.9 fL (9.1-12.4); NEUTROPHILS ABSOLUTE AUTO 8.13 K/mm3 (1.96-9.15); NEUTROPHILS PERCENT AUTO 80 % (41-73); Platelet Count 212 K/mm3 (150-400); RDW Coefficient Variation 15.1 % (11.7-14.2); RDW Standard Deviation 55.4 fL (35.1-46.3); Red Blood Cell Count 3.57 M/mm3 (3.80-5.20); White Blood Cell Count 10.13 K/mm3 (4.00-11.30)
[2024-07-16 05:23] LABS: Bun/Creatinine Ratio 13.7 (12.0-20.0); Calcium, Blood 9.3 mg/dL (8.5-10.1); Creatinine, Blood 0.95 mg/dL (0.40-1.00); Potassium, Blood 4.2 mmol/L (3.5-5.5)
[2024-07-16] MEDS ORDERED: Dose Adjust by Pharmacy XX STA (05:39)
== END 2024-07-16 11:05 | disposition short-term general hospital (02) | DRG 300 ==
LOC: ER 16:37 → PCU 23:26 → ERHOLD 23:26 → PCU 07-13 13:44
PROVIDERS: Emergency Medicine; Internal Medicine; ADMIT Internal Medicine
PROC: 04JY3ZZ Inspection of Lower Artery, Percutaneous Approach (ICD-10-PCS; principal; 2024-07-15)
PROC: B41G1ZZ Fluoroscopy of Left Lower Extremity Arteries using Low Osmolar Contrast (ICD-10-PCS; 2024-07-15)
DX: I70.245 Atherosclerosis of native arteries of left leg with ulceration of other part of foot (principal); I74.5 Embolism and thrombosis of iliac artery; L97.529 Non-pressure chronic ulcer of other part of left foot with unspecified severity; J44.9 Chronic obstructive pulmonary disease, unspecified; D50.9 Iron deficiency anemia, unspecified; I10 Essential (primary) hypertension; E78.5 Hyperlipidemia, unspecified; K21.9 Gastro-esophageal reflux disease without esophagitis; Z86.79 Personal history of other diseases of the circulatory system; Z79.01 Long term (current) use of anticoagulants; Z79.82 Long term (current) use of aspirin; Z88.1 Allergy status to other antibiotic agents; Z88.8 Allergy status to other drugs, medicaments and biological substances; Z95.2 Presence of prosthetic heart valve; Z95.1 Presence of aortocoronary bypass graft; Z79.899 Other long term (current) drug therapy; Z53.8 Procedure and treatment not carried out for other reasons
CPT/HCPCS: 36415; 75635; 76937; 80048; 80053; 83880; 85014; 85018; 85025; 85049; 85520; 85610; 85730; 94640; 94664; 94760; 94762; 96365-59; 96366; 96375; 96375-59; 96376; 99152; 99153; 99284-25; A9270; C1769; C1887; C1894; G0378; J0360; J1171; J1644; J2250; J2405; J3010; J7030; J7040; J7050; Q9967